=== PATIENT | male | born 1970 | race Caucasian/White ===

== ENCOUNTER 2017-10-04 20:57 | Emergency (ER) | payer MEDICAID ==
[2017-10-04] MEDS ORDERED: Ketorolac 30 MG/ML SDV IVPUSH ONE (21:18)
--- NOTE | 2017-10-04 21:29 | EDM.PDOC ---
ED HPI GENERAL MEDICAL PROBLEM - General Chief Complaint: Back Pain or Injury Stated Complaint: CHRONIC BACK PAIN Time Seen by Provider: 10/04/17 21:15 Source of Information: Reports: Patient, RN History Limitations: Reports: No Limitations - History of Present Illness INITIAL COMMENTS - FREE TEXT/NARRATIVE: 46 yo male presents via EMS with exacerbation of chronic low back pain. Often has pain down his R leg and today he states that the R leg is numb down to the foot. No bowel or bladder incontinence. Has had this pain on and off for a long time, but has never sought medical care for it. EMS transported and medicated him so that he is reasonably comfortable on arrival. Onset: Unknown/Unsure Duration: Chronic, Getting Worse Location: Reports: Back (low), Lower Extremity, Right Quality: Reports: Ache Severity: Severe Improves with: Reports: Immobilization, Medication Worsens with: Reports: Movement Context: Reports: Other (unknown, chronic pain) Associated Symptoms: Reports: Other (numbness right leg and foot) Treatments SLIP PRESSER: Reports: IV/IO, Other Medication(s) Low back Pain Score (Numeric/FACES): 5 - Related Data Allergies Allergy/AdvReac Type Severity Reaction Status Date / Time No Known Allergies Allergy Verified 10/04/17 21:06 Home Meds: Home Meds NK [No Known Home Meds] 10/04/17 [History] Past Medical History - Past Health History Medical/Surgical History: Denies Medical/Surgical History Musculoskeletal History: Reports: Back Pain, Chronic - Infectious Disease History Infectious Disease History: Reports: Chicken Pox - Past Surgical History GI Surgical History: Reports: Hernia, Inguinal Social & Family History - Tobacco Use Smoking Status *Q: Current Every Day Smoker Years of Tobacco use: 30 Packs/Tins Daily: 0.7 Second Hand Smoke Exposure: Yes - Caffeine Use Caffeine Use: Reports: Coffee, Soda - Recreational Drug Use Recreational Drug Use: No ED ROS GENERAL - Review of Systems Review Of Systems: See Below Constitutional: Reports: No Symptoms Respiratory: Reports: No Symptoms Cardiovascular: Reports: No Symptoms GI/Abdominal: Reports: No Symptoms : Reports: No Symptoms Musculoskeletal: Reports: Back Pain (low) Skin: Reports: No Symptoms Neurological: Reports: Numbness (R leg and foot), Paresthesia, Difficulty Walking (due to pain) Psychiatric: Reports: No Symptoms ED EXAM,LOWER BACK PAIN/INJURY - Physical Exam Exam: See Below Exam Limited By: No Limitations General Appearance: Alert, WD/WN, No Apparent Distress Eye Exam: Bilateral Eye: Normal Inspection, PERRL Ears: Normal External Exam, Normal Canal, Hearing Grossly Normal Nose: Normal Inspection, Normal Mucosa, No Blood Throat/Mouth: Normal Inspection, Normal Lips, Normal Oropharynx, Normal Voice, No Airway Compromise Head: Atraumatic, Normocephalic Neck: Normal Inspection, Supple, Non-Tender Respiratory/Chest: No Respiratory Distress, Lungs Clear, Normal Breath Sounds, No Accessory Muscle Use Cardiovascular: Regular Rate, Rhythm, No Edema GI/Abdominal: Normal Bowel Sounds, Soft, Non-Tender, No Distention Back Exam: Normal Inspection, Other (has had extensive narcotic pain meds per EMS before my exam.). No: CVA Tenderness (R), CVA Tenderness (L), Paraspinal Tenderness, Vertebral Tenderness Extremities: Normal Inspection, Normal Range of Motion, Non-Tender, No Pedal Edema Neurological: Alert, Normal Mood/Affect, Normal Dorsiflexion, CN II-XII Intact, Oriented x 3, Other (R leg and foot are numb to touch.) DTR - Lower Extremities: 3+: Knee (R), Knee (L) Psychiatric: Normal Affect, Normal Mood Skin Exam: Warm, Dry, Intact, Normal Color, No Rash Lymphatic: No Adenopathy Course - Vital Signs Text/Narrative:: Able to walk about room after tx here in the ER. Last Recorded V/S: Last Vital Signs Temp 37.0 C 10/04/17 21:00 Pulse 72 10/04/17 21:30 Resp 14 10/04/17 21:00 BP 146/81 H 10/04/17 21:30 Pulse Ox 94 L 10/04/17 21:30 - Orders/Labs/Meds Orders: Active Orders 24 hr Category Date Time Status Lumbar Spine 2 or 3V [CR] Stat Exams 10/04/17 21:17 Taken Meds: Medications Discontinued Medications Generic Name Dose Route Start Last Admin Trade Name Freq PRN Reason Stop Dose Admin Ketorolac Tromethamine 30 mg 10/04/17 21:18 10/04/17 21:23 Toradol IVPUSH 10/04/17 21:19 30 mg ONETIME ONE Administration Methylprednisolone Sodium Succinate 125 mg 10/04/17 21:42 10/04/17 21:50 Solu-Medrol IVPUSH 10/04/17 21:43 125 mg ONETIME ONE Administration - Radiology Interpretation Free Text/Narrative:: Lumbar spine [id number] except for loss of lumbar lordosis Departure - Departure Time of Disposition: 22:30 Disposition: Home, Self-Care 01 Condition: Fair Clinical Impression: Lumbar back pain with radiculopathy affecting right lower extremity - Discharge Information Instructions: Back Pain, Adult, [id number] Referrals: Barry Chaudhry MD [Primary Care Provider] - Forms: ED Department Discharge - My Orders Last 24 Hours: My Active Orders 10/04/17 21:17 Lumbar Spine 2 or 3V [CR] Stat - Assessment/Plan Last 24 Hours: My Active Orders 10/04/17 21:17 Lumbar Spine 2 or 3V [CR] Stat
[2017-10-04] MEDS ORDERED: methylPREDNISolone Sodium Succinate 125 MG/2 ML SDV IVPUSH ONE (21:42)
--- NOTE | 2017-10-07 08:35 | CR ---
Lumbar Spine 2 or 3V HISTORY: low back pain FINDINGS: Lumbar vertebral bodies appear intact and in satisfactory alignment. Straightening of the lumbar myriam dotic curvature could be due to positioning or muscle spasm. There is degenerative disc space narrowi ng at L5-S1. No compression fracture is seen. Spinous processes, posterior elements, and pedicles jack ear intact and in satisfactory alignment. Perivertebral soft tissues appear normal. IMPRESSION: Straightening of the lumbar lordotic curvature could be positional or due to muscle spasm. No other a cute lumbar spine abnormality identified.
== END 2017-10-04 22:46 | disposition home or self-care (01) ==
LOC: JP.ED 20:57
DX: M54.16 Radiculopathy, lumbar region (principal)
CPT/HCPCS: 72100; 96374; 96375; 99284; J1885; J2930

== ENCOUNTER 2018-02-25 08:30 | Day surgery (SDC) | payer MEDICAID ==
[~2018-02-25 08:30] MED LIST: Dexamethasone 4 MG/ML SDV ONE; Glycopyrrolate 0.2 MG/ML 5 ML MDV ONE; Neostigmine Methylsulfate 1 MG/ML 5 ML Syringe ONE; Ondansetron 4 MG/2 ML SDV ONE; Povidone-Iodine 10% Soln 118.25 ML Bottle ONE; Propofol 200 MG/20 ML SDV ONE; Rocuronium 50 MG/5 ML Vial ONE; Succinylcholine 200 MG/10 ML MDV ONE; fentaNYL 250 MCG/5 ML SDV ONE
[2018-02-25] MEDS ORDERED: Scopolamine 1.5 MG Transdermal Patch TOP SCH (09:00)
[2018-02-25] MEDS ORDERED: Gabapentin 300 MG Cap PO ONE (09:00)
[2018-02-25] MEDS ORDERED: Acetaminophen 500 MG Tab PO ONE (09:00)
[2018-02-25] MEDS ORDERED: ceFAZolin 2 GM in Premix Bag 1 BAG IV ONE (09:00)
[2018-02-25] MEDS ORDERED: Lactated Ringers 1,000 ML IV SCH (09:00)
[2018-02-25] MEDS ORDERED: Ketamine 500 MG/5 ML MDV IV SCH (10:00)
[2018-02-25] MEDS ORDERED: Ropivacaine 49.25 ML, Ketorolac 30 MG, EPINEPHrine 0.5 MG, cloNIDine 80 MCG, Sodium Chl... INJECT ONE ×5 (10:00)
[2018-02-25] MEDS: Tranexamic Acid 730 MG in Sodium Chloride 0.9% 50 ML IV SCH ×3 (10:25→14:45)
[2018-02-25] MEDS ORDERED: Thrombin (Bovine) 5,000 Unit Kit TOP ONE (10:35)
[2018-02-25] MEDS ORDERED: Thrombin (Bovine) 5,000 Unit Kit ONE (11:00)
[2018-02-25] MEDS ORDERED: Acetaminophen/oxyCODONE 325-5 MG Tab PO PRN (11:08)
--- NOTE | 2018-02-25 13:19 | OR ---
DATE OF PROCEDURE: 02/25/2018 PREOPERATIVE DIAGNOSIS: Lumbar stenosis and disk herniation at L5-S1. POSTOPERATIVE DIAGNOSIS: Lumbar stenosis and disk herniation at L5-S1. PROCEDURE PERFORMED: L5-S1 right hemilaminectomy. ANESTHESIA: General endotracheal intubation. FLUID: Lactated Ringer solution. ESTIMATED BLOOD LOSS: 10 mL. COMPLICATIONS: None. SPECIMEN: None. DISCHARGE DISPOSITION: Stable to PACU. INDICATION FOR PROCEDURE: The patient was seen preoperatively in the clinic. He failed nonoperative treatment. Preoperative imaging confirmed the above-mentioned diagnosis. Risks and benefits of the procedure were explained to the patient. Informed consent was obtained. DESCRIPTION OF PROCEDURE: The patient was seen preoperatively by myself and the Anesthesia staff in the preoperative holding area, where the operative site was marked. He was brought to the operative suite by Anesthesia staff, where general anesthesia was administered. He was then placed into a prone position on the Nahid table. The bed was then flexed. All extremities were found to be well padded. The patient's back was then prepped and draped in a sterile manner. Time-out was called identifying the correct patient, the correct procedure, the correct site, and that antibiotics had been begun within the appropriate period of time. The sterilely-draped fluoroscopy unit was then brought in and then the L5- S1 level was identified. A midline incision was made over the L5-S1 interspace, primarily over the L5 spinous process, and brought down to the fascia using a Weitlaner for retraction and Bovie electrocautery for hemostasis. I then used Versa-Trac 30-mm blade and a hook to go down and dissect on the right side over the L5 and S1 spinous processes and the caudal lamina of L5 and the cranial lamina of S1. Then, at that point, I was able to undermine the inferior and superior lamina with a 3-0 angle curette. I then removed the inferior portion of the lamina of L5 and the superior portion of lamina of S1 with a #5 [place]. I then used a long ball and freed up the ligamentum flavum, identified the dura, then placed a cottonoid over the dura for protection, and then removed the remainder of the ligamentum flavum with pituitaries and Kerrisons. Disk material was then abundantly obvious at that point in time. I removed a great deal of disk material. I protected the dura with the cottonoid as well as a #1 [place]. I took a great deal of time to make sure that we removed all the disk material that left a partial cavity underneath the dura on the right. I then took a long ball and confirmed my position and took fluoroscopy shots. I then irrigated with 2 L of Betadine-infused irrigation, placed a small amount of Floseal in the epidural space and then tamped any extra off after about a minute. We then closed the deep fascia with #1 STRATAFIX and irrigated with another liter of saline, and then closed with #2 STRATAFIX and Prineo, and then placed a sterile dressing. The patient was then flipped into a supine position in his hospital bed and taken to the PACU in a stable condition. Miguel Jimenez DO /[id number]
[2018-02-25] MEDS ORDERED: ceFAZolin 1 GM in Premix Bag 1 BAG IV SCH (17:00)
== END 2018-02-25 17:43 | disposition home or self-care (01) ==
LOC: JP.SDS 08:30 → JP.MS 12:05 → JP.SDS 17:43
PROVIDERS: ATTEND Orthopaedic Surgery
DX: M48.061 Spinal stenosis, lumbar region without neurogenic claudication (principal); M51.27 Other intervertebral disc displacement, lumbosacral region; F17.210 Nicotine dependence, cigarettes, uncomplicated
CPT/HCPCS: 36415; 63030; 86850; 86900; 86901; 97110; 97161; 97530; 97535; A9270; J0171; J0690; J0735; J1100; J1885; J2405; J2704; J2710; J2795; J3010; J7030; J7050; J7120; J0330